=== PATIENT | female | born 1975 | race African-American/Black ===

== ENCOUNTER 2019-11-11 13:06 | Emergency (ER) | payer MEDICAID ==
[~2019-11-11] VITALS: Ht 167.6 cm; Wt 96.0 kg
[2019-11-11] MEDS ORDERED: ACETAMINOPHEN WITH CODEINE 300/30MG TABLET PO ONE (15:15)
[2019-11-11] MEDS ORDERED: KETOROLAC 30MG/ML VIAL IM ONE (17:00)
[2019-11-11 17:13] VITALS: BP 128/86
== END 2019-11-11 17:14 | disposition home or self-care (01) ==
LOC: ER 13:06
DX: S33.5XXA Sprain of ligaments of lumbar spine, initial encounter (principal); V49.49XA Driver injured in collision with other motor vehicles in traffic accident, initial encounter; Y93.89 Activity, other specified; Y92.89 Other specified places as the place of occurrence of the external cause; Y99.8 Other external cause status; F41.9 Anxiety disorder, unspecified; R51 Headache
CPT/HCPCS: 70450; 72100; 96372; 99284; J1885